=== PATIENT | male | born 1985 | race Caucasian/White ===

== ENCOUNTER 2016-06-07 23:39 | Emergency (ER) | payer SELFPAY ==
[2016-06-08] MEDS ORDERED: LIDOCAINE 1% MDV 20 ML ONE (00:58)
[2016-06-08] MEDS ORDERED: CEFTRIAXONE 250 MG VIAL ONE (00:58)
== END 2016-06-08 01:36 | disposition home or self-care (01) ==
LOC: ER 23:39
DX: M54.2 Cervicalgia (principal); A54.01 Gonococcal cystitis and urethritis, unspecified
CPT/HCPCS: 87491; 87591; 96372